=== PATIENT | female | born 1990 | race Caucasian/White ===

== ENCOUNTER 2024-11-17 19:32 | Emergency (ER) | payer OTHER, SELFPAY ==
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
[2024-11-17 19:41] VITALS: BP 127/88; PULSE 73; RESP 15; TEMP 36.6; O2SAT 98
--- OUTSIDE RECORDS SUMMARY | 2024-11-17 20:02 | XMS_ITS | Clinical Summary ---
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
[2024-11-17] MEDS: oxyCODONE/ACETAMINOPHEN (*CRX) 5-325 MG TABLET 1 TABLET PO (20:23)
[2024-11-17] MEDS: IBUPROFEN 600 MG TABLET PO (20:23)
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
[2024-11-17 20:30] VITALS: BP 123/83; PULSE 69; RESP 13; O2SAT 100
[2024-11-17 20:32] VITALS: BP 123/83; PULSE 69; RESP 13; O2SAT 100
== END 2024-11-17 20:34 | disposition home or self-care (01) ==
PROVIDERS: Emergency Provider Emergency Medicine; PCP Internal Medicine
DX: S42.031A Displaced fracture of lateral end of right clavicle, initial encounter for closed fracture (principal); M17.12 Unilateral primary osteoarthritis, left knee; Z87.891 Personal history of nicotine dependence; V86.55XA Driver of 3- or 4- wheeled all-terrain vehicle (ATV) injured in nontraffic accident, initial encounter
CPT/HCPCS: 71045; 73000; 99284; A4565; A9270